=== PATIENT | male | born 1985 | race Caucasian/White ===

== ENCOUNTER 2017-08-18 07:54 | Emergency (ER) | payer BC, SELFPAY ==
[2017-08-18 07:59] VITALS: BP 132/90; PULSE 90; RESP 16; TEMP 36.6; O2SAT 99; BMI 23.7
--- NOTE | 2017-08-18 08:05 | CT_ITS ---
STUDY: CT ABDOMEN AND PELVIS WITHOUT CONTRAST REASON FOR EXAM: Male, 31 years old. Right flank pain. RADIATION DOSAGE (If Supplied By Facility): CTDIvol = ( 8.00 ) mGy, DLP = ( 445.89 ) mGycm TECHNIQUE: Transaxial images were obtained from the dome of the diaphragm to the symphysis pubis without oral contrast, and without intravenous contrast. Sagittal and coronal images were reconstructed. Individualized dose optimization techniques were used for this CT. COMPARISON: None. FINDINGS: The visualized lung bases are unremarkable. The visualized portions of the heart are within normal limits. Normal liver. There is a solitary gallstone. Normal spleen. Normal pancreas. Normal bilateral adrenal glands. There is engorgement of the right kidney. Mild to moderate right hydronephrosis and the hydroureter due to a punctate calculus in the distal portion of the right ureter proximal to the right ureterovesical junction. Normal left kidney. There is a small hiatal hernia. Normal small intestine. Normal colon. There are surgical clips in the region of the appendix consistent with a prior appendectomy. Normal abdominal aorta. Normal inferior vena cava. Normal retroperitoneum. Normal urinary bladder. Small bilateral inguinal hernias containing fat. Benign appearing small bilateral inguinal lymph nodes. Normal osseous structures. CT/Abdomen/Pelvis without Cont IMPRESSION: Right-sided hydronephrosis and hydroureter due to a punctate calcification in the distal portion of the right ureter. Electronically Signed: Ty Hamilton MD at 9:22 EDT Tel [phone], Service support ,
[2017-08-18] MEDS: Dicyclomine 20 MG/2 ML Vial IM (08:18)
[2017-08-18 08:20] LABS: Bacteria 0 SEEN /hpf (None Seen); Squamous Epithelial Cells - UA 0 SEEN /hpf (0-5)
[2017-08-18] MEDS: Ondansetron 4 MG/2 ML Vial IV (08:24)
[2017-08-18] MEDS: Ketorolac 30 MG/ML Syringe IV (08:24)
[2017-08-18 08:27] LABS: Color, Urine Yellow (Yellow); Glucose, Dipstick Normal (Normal); Ketone-Dipstick Negative (Negative); Leukocyte Esterase-Dipstick 25 /ul (Negative); Nitrite-Dipstick Negative (Negative); Occult Blood-Urine 150 /ul (Negative); Protein-Dipstick 15 mg/dl (Negative); Urine Bilirubin Dipstick Negative (Negative); Urine Clarity Sl. Cloudy (Clear); Urine Urobilinogen Normal (Normal); Urine pH 6.5 (5.0 - 8.0)
[2017-08-18 08:37] LABS: Red Blood Cells-Urine 5-10 SEEN /hpf (0-5); White Blood Cells 0-5 SEEN /hpf (0-5)
[2017-08-18 08:39] LABS: Mucous, Urine 1+ /hpf (<or=2+)
[2017-08-18 08:44] LABS: Basophil# 0.03 X10^3/uL; Basophil% 0.3 % (0-1); Eosinophils% 0.9 % (0-5); Hematocrit 48.4 % (40-54); Hemoglobin 16.3 g/dl (13.0-16.5); Lymphocyte % 11.8 % (19-41); Mean Corp Hgb Conc 33.7 g/gl (32-36); Mean Corpuscular Hgb 30.1 pg (27.0-32.0); Mean Corpuscular Volume 89.3 fL (80-94); Monocyte# 0.61 X10^3/uL; Monocyte% 5.5 % (0-10); Neutrophil # 8.95 X10^3/uL (2.7-7.7); Neutrophil % 81.2 % (47-70); Platelet Count 185 K/mm3 (150-450); RBC Distribution Width CV 13.7 % (11.6-14.6); RBC Distribution Width SD 44.8 fl (35.1-43.9); Red Blood Count 5.42 M/mm3 (4.6-6.2)
[2017-08-18 08:45] LABS: POSITIVE COUNT NO; POSITIVE DIFFERENTIAL NO; POSITIVE MORPHOLOGY NO
--- NOTE | 2017-08-18 08:53 | ED.DCSUM_ITS ---
- ER Visit Summary Date of Service: 08/18/17 Chief Complaint: Abdominal pain History of Present Illness: The patient is a 31 M who presents with right lower abdominal pain. Patient states that began about 4 hours prior to arrival but went away. He states that about 6:00 it came on again has been constant since. Scribes it is severe very low pelvis with radiation into his right flank. He denies any urinary symptoms. He states he felt a strong urge to have a bowel movement and needed to have the ambulance sample puller into the side of the road. He states he keeps feeling like he needs to have a bowel movement. He notes he has had prior appendectomy. He notes nausea but no vomiting. Dysuria frequency or hematuria. Physical Examination: Afebrile vital signs are stable Gen: Well-nourished well-developed Head: Normocephalic atraumatic Eyes: Perrl EOMI ENT: TMs clear no rhinorrhea moist mucous membranes Neck: Supple no lymphadenopathy no JVD nontender CVS: Regular rate rhythm no murmurs normal S1-S2 Respiratory: No distress clear to auscultation bilaterally chest nontender Abdomen: Soft mild right lower quadrant tenderness to palpation nondistended normal bowel sounds no masses Back: Nontender Extremity: Nontender no edema Skin: Normal color no rash Neuro: alert orientated ?3 CN II-XII intact normal strength sensation reflexes gait cerebellar Psych: Normal affect normal mood Test Results: CBC was normal. Urinalysis demonstrated [address] abdomen pelvis demonstrated right sided hydronephroureter with a punctate calcification in the distal ureter. Emergency Department Course and Treatment: Patient received Bentyl Toradol and Zofran. Patient will be discharged home with [place] and Flomax and Zofran. He may follow-up with primary care or with urology. Return if worsening or concerns. Impression: 1. Right distal ureteral kidney stone 2. Hydronephroureter This note was generated with [employer] dictation software. It may contain incorrect words, spelling, and punctuation that were not noted in review of the chart prior to signing ED Disposition - Plan for ED Patient: Disposition: Home or Assisted Living Chief Complaint: Flank Pain Instructions: ED Stone Renal W Colic Prescriptions: Ondansetron [Zofran Odt] 4 mg PO Q8H PRN PRN #10 tab PRN Reason: Nausea Hydrocodone/Acetaminophen [[place] 5-325 Tablet] 1 - 2 ea PO 4X/DAY PRN PRN 5 Days #20 tab PRN Reason: Pain Tamsulosin HCl [Flomax] 0.4 mg PO QHS #5 cap Referrals: Kevin Mills MD [Primary Care Provider] - 3-5 Days if not improving Tiago Nunez MD [STAFF PHYSICIAN] - (call to arrange follow up if you would like to see a urologist)
[2017-08-18 09:01] LABS: Anion Gap 8 (5-15); BUN 16 mg/dL (7-18); BUN/Creat Ratio 14.2 RATIO (10-20); Chloride 107 mmol/L (98-107); Creatinine, Serum 1.13 mg/dL (0.70-1.30); EST Glomerular Filtration Rate 81 mL/min (>60); Est Glom Filt Rate - Afr Amer 98 mL/min (>60); Estimated Creatinine Clearance 104.92 ml/min; Glucose 128 mg/dL (74-106); Potassium 3.6 mmol/L (3.5-5.1); Sodium Level 141 mmol/L (136-145)
[2017-08-18] MEDS: HYDROcodone Bitartrate/Apap 5/325 Tablet PO (10:05)
[2017-08-18 10:10] VITALS: BP 121/68; PULSE 87; RESP 16; O2SAT 97
== END 2017-08-18 10:12 | disposition home or self-care (01) ==
PROVIDERS: Emergency Provider Emergency Medicine; Family Provider Family Medicine; PCP Family Medicine
DX: N13.2 Hydronephrosis with renal and ureteral calculous obstruction (principal); Z90.49 Acquired absence of other specified parts of digestive tract
CPT/HCPCS: 74176; 80048; 81001; 85025; 96372; 96374; 96375; 99285; A4216; J2405

== ENCOUNTER 2020-06-05 15:40 | Outpatient (RCR) | payer OTHER, SELFPAY | END 2020-08-06 23:59 | LOC: IMMUN 15:40 | PROVIDERS: PCP Family Medicine; Referring Provider Family Medicine; Visit Provider Family Medicine | DX: Z23 Encounter for immunization (principal) | CPT/HCPCS: 0001A; 0002A; 91300 ==